=== PATIENT | female | born 1950 | race Caucasian/White ===

== ENCOUNTER → 2018-12-11 | Outpatient (CLI) | payer MEDICARE, OTHER ==
[~2018-12-11] MED LIST: AMLO-150 PO; ASPI-496 PO; HYDR25TA6 PO; METF500T17 PO; NEBI10TA3 PO; OMEP20TA62 PO; ROSU10TA2 PO; SITA100T PO; SULF500T36 PO
[2018-12-11 10:51] LABS: INTERNATIONAL NORMALIZED RATIO 0.95 (0.93-1.1)
[2018-12-11 10:52] LABS: ALANINE AMINOTRANSFERASE 22 U/L (12-78); ALBUMIN 3.9 g/dL (3.4-5.0); ANION GAP 6 mmol/L (5-15); CALCIUM 9.5 mg/dL (8.5-10.1); CHLORIDE 107 mmol/L (98-107); CREATININE 0.95 mg/dL (0.55-1.02)
[2018-12-11 10:54] LABS: MICROSCOPIC AUTO
[2018-12-11 10:55] LABS: ALKALINE PHOSPHATASE 88 U/L (45-117); BILIRUBIN,TOTAL 0.3 mg/dL (0.2-1.0); TOTAL PROTEIN 7.6 g/dL (6.4-8.2)
[2018-12-11 11:01] LABS: CULTURE INDICATED? YES
[2018-12-11 11:08] LABS: BASOPHILS # (AUTO) 0.03 x10^3/uL (0-0.1); BASOPHILS % (AUTO) 0 % (0-1); EOSINOPHILS # (AUTO) 0.08 x10^3/uL (0-0.4); EOSINOPHILS % (AUTO) 1 % (1-7); LYMPHOCYTES # (AUTO) 1.56 x10^3/uL (1-3.4); LYMPHOCYTES % (AUTO) 21 % (22-44); MD NO; MEAN CORPUSCULAR HEMOGLOBIN 28.5 pg (27.0-34.8); MEAN CORPUSCULAR VOLUME 86.5 fL (80-100); MONOCYTES # (AUTO) 0.36 x10^3/uL (0.2-0.8); MONOCYTES % (AUTO) 5 % (2-9); NEUTROPHILS # (AUTO) 5.39 x10^3/uL (1.8-6.8); NEUTROPHILS % (AUTO) 73 % (42-75); PLATELET COUNT 222 x10^3/uL (130-400); RED BLOOD COUNT 5.15 x10^6/uL (3.82-5.3); RED CELL DISTRIBUTION WIDTH 14.3 % (9.6-15.2)
== END | disposition home or self-care (01) ==
LOC: STAR 09:19
PROVIDERS: ATTEND Orthopaedic Surgery
DX: Z01.818 Encounter for other preprocedural examination (principal); M17.11 Unilateral primary osteoarthritis, right knee; I49.3 Ventricular premature depolarization; R94.31 Abnormal electrocardiogram [ECG] [EKG]
CPT/HCPCS: 36415; 80053; 81001; 83036; 85025; 85610; 85730; 87081; 87086; 87806; 93005; G0475

== ENCOUNTER 2018-12-21 06:48 | Observation (INO) | payer MEDICARE, OTHER ==
[~2018-12-21] VITALS: Ht 157.5 cm; Wt 95.5 kg
[~2018-12-21 06:48] MED LIST changes: +EPINEPHRINE 1 MG/ML, 1ML ONE; +KETOROLAC 60 MG/2 ML ONE; +ROPIvacaine/PF 0.2%, 20 ML ONE; +SODIUM CHLORIDE 0.9% 50 ML ONE; +TRANEXAMIC ACID 100 MG/ML, 10ML ONE
[2018-12-21] MEDS ORDERED: MIDAZOLAM 1 MG/ML, 2ML ONE (07:41)
[2018-12-21] MEDS ORDERED: FENTANYL PF 250 MCG/5ML ONE (07:41)
[2018-12-21] MEDS ORDERED: ACETAMINOPHEN 500 MG TABLET PO STA (07:43)
[2018-12-21] MEDS ORDERED: GABAPENTIN 300 MG CAPSULE PO STA (07:43)
[2018-12-21] MEDS: LACTATED RINGERS 1,000 ML IV SCH ×2 (08:07→08:15)
[2018-12-21] MEDS ORDERED: DIPHENHYDRAMINE 50 MG CAPSULE PO PRN (09:00)
[2018-12-21] MEDS ORDERED: SCOPOLAMINE PATCH, 1.5MG PATCH.TD72 TD SCH (09:00)
[2018-12-21] MEDS ORDERED: SENNA/DOCUSATE TABLET PO PRN (09:00)
[2018-12-21] MEDS ORDERED: DEXAMETHASONE 4 MG/ML, 1ML IVPush SCH (09:00)
[2018-12-21] MEDS ORDERED: PSYLLIUM PACKET PO PRN (09:00)
[2018-12-21] MEDS ORDERED: DIPHENHYDRAMINE 50 MG/ML, 1ML IVPush PRN (09:00)
[2018-12-21] MEDS ORDERED: KETOROLAC 30 MG/1 ML IV SCH (09:00)
[2018-12-21] MEDS ORDERED: ONDANSETRON 2MG/ML, 2ML IV PRN ×2 (09:00→09:30)
[2018-12-21] MEDS ORDERED: ACETAMINOPHEN 325 MG TABLET PO PRN (09:00)
[2018-12-21] MEDS ORDERED: ALUMINUM/MAG/SIMETHICONE 30 ML UDC PO PRN (09:00)
[2018-12-21] MEDS ORDERED: MAGNESIUM HYDROXIDE 8%, 30ML UDC PO PRN (09:00)
[2018-12-21] MEDS ORDERED: HYDROmorphone 2 MG/ML, 1ML IVPush PRN ×2 (09:00→09:30)
[2018-12-21] MEDS ORDERED: OXYcodone IR 5MG TABLET PO PRN (09:00)
[2018-12-21] MEDS ORDERED: POLYETHYLENE GLYCOL 17 GM PACKET PO PRN (09:00)
[2018-12-21] MEDS ORDERED: PROMETHAZINE 25 MG/ML, 1ML IM PRN (09:00)
[2018-12-21] MEDS ORDERED: ONDANSETRON 4 MG TABLET PO PRN (09:00)
[2018-12-21] MEDS ORDERED: ACETAMINOPHEN 650 MG/20.3 ML UDC PO PRN (09:00)
[2018-12-21] MEDS ORDERED: BUPIVACAINE/PF 0.25% ONE (09:30)
[2018-12-21] MEDS ORDERED: DIAZEPAM 5 MG/ML, 2ML IVPush PRN (09:30)
[2018-12-21] MEDS ORDERED: FENTANYL PF 100 MCG/2ML IV PRN (09:30)
[2018-12-21] MEDS ORDERED: MIDAZOLAM 1 MG/ML, 2ML IV PRN (09:30)
[2018-12-21] MEDS ORDERED: ALBUTEROL/IPRATROPIUM 2.5MG/0.5MG, 3 ML NPPB PRN (09:30)
[2018-12-21] MEDS ORDERED: METOPROLOL 1 MG/ML, 5ML IV PRN (09:30)
[2018-12-21] MEDS ORDERED: PROMETHAZINE 25 MG/ML, 1ML IV PRN (09:30)
[2018-12-21] MEDS ORDERED: hydrALAzine 20 MG/ML, 1ML IV PRN (09:30)
[2018-12-21] MEDS ORDERED: LIDOCAINE-MPF 2% ,5ML ONE (09:30)
[2018-12-21] MEDS ORDERED: MEPERIDINE/PF 25MG/0.5ML IVPush PRN (09:30)
[2018-12-21] MEDS ORDERED: OXYcodone 5 MG/5 ML ORAL.SOL UDC PO PRN (09:30)
[2018-12-21] MEDS ORDERED: SCOPOLAMINE PATCH, 1.5MG PATCH.TD72 TD PRN (09:30)
[2018-12-21] MEDS ORDERED: DEXAMETHASONE 4 MG/ML, 1ML ONE (09:32)
[2018-12-21] MEDS ORDERED: ONDANSETRON 2MG/ML, 2ML ONE (09:32)
[2018-12-21] MEDS ORDERED: CEFAZOLIN 1,000 MG ONE (09:32)
[2018-12-21] MEDS ORDERED: PROPOFOL 10 MG/ML, 20ML ONE (09:32)
[2018-12-21] MEDS ORDERED: FENTANYL PF 100 MCG/2ML ONE (10:22)
[2018-12-21] MEDS ORDERED: OXYcodone 5 MG/5 ML ORAL.SOL UDC ONE (10:23)
[2018-12-21] MEDS ORDERED: TRANEXAMIC ACID 1,000 MG in SODIUM CHLORIDE 0.9% 100 ML IVPB ONE (10:30)
[2018-12-21 11:55] VITALS: BP 116/57
[2018-12-21] MEDS: TAMSULOSIN 0.4 MG CAP.ER.24H PO SCH (12:28)
[2018-12-21] MEDS: POTASSIUM CHLORIDE 20 MEQ in LACTATED RINGERS 1,000 ML IV SCH ×2 (12:28→22:06)
[2018-12-21] MEDS: DOCUSATE 100 MG CAPSULE PO SCH ×2 (12:28→21:17)
[2018-12-21 15:41] VITALS: BP 122/74
[2018-12-21] MEDS ORDERED: KETOROLAC 60 MG/2 ML ONE (17:37)
[2018-12-21] MEDS: metFORMIN 500 MG TABLET PO SCH (17:56)
[2018-12-21] MEDS: CEFAZOLIN PMX 1GM/50ML 50 ML IVPB SCH (17:56)
[2018-12-21] MEDS: KETOROLAC 30 MG/1 ML IVPush SCH (17:56)
[2018-12-21] MEDS ORDERED: ASPIRIN 81 MG TABLET EC PO SCH (18:00)
[2018-12-21] MEDS: ASPIRIN 81 MG TABLET EC PO SCH ×2 (18:00→21:17)
[2018-12-21 18:56] VITALS: BP 106/67
[2018-12-21] MEDS ORDERED: GABAPENTIN 300 MG CAPSULE PO SCH (21:00)
[2018-12-21] MEDS ORDERED: ATORVASTATIN 40 MG TABLET PO SCH (21:00)
[2018-12-22 00:50] VITALS: BP 106/68
[2018-12-22] MEDS: CEFAZOLIN PMX 1GM/50ML 50 ML IVPB SCH (01:35)
[2018-12-22] MEDS: KETOROLAC 30 MG/1 ML IVPush SCH ×2 (01:35→08:23)
[2018-12-22 04:15] VITALS: BP 106/67
[2018-12-22] MEDS ORDERED: OMEPRAZOLE 20 MG CAPSULE.DR PO SCH (06:00)
[2018-12-22] MEDS ORDERED: NEBIVOLOL HCL 5 MG TABLET PO SCH (06:00)
[2018-12-22] MEDS ORDERED: DEXAMETHASONE 4 MG/ML, 1ML IVPush ONE ×2 (06:00)
[2018-12-22 08:12] VITALS: BP 124/67
[2018-12-22] MEDS: metFORMIN 500 MG TABLET PO SCH (08:22)
[2018-12-22] MEDS: TAMSULOSIN 0.4 MG CAP.ER.24H PO SCH (08:22)
[2018-12-22] MEDS: ASPIRIN 81 MG TABLET EC PO SCH (08:22)
[2018-12-22] MEDS: DOCUSATE 100 MG CAPSULE PO SCH (08:22)
[2018-12-22] MEDS: POTASSIUM CHLORIDE 20 MEQ in LACTATED RINGERS 1,000 ML IV SCH (08:23)
[2018-12-22] MEDS ORDERED: AMLODIPINE 5 MG TABLET PO SCH (09:00)
[2018-12-22] MEDS ORDERED: HYDROCHLOROTHIAZIDE 25 MG TABLET PO SCH (09:00)
[2018-12-22] MEDS ORDERED: SULFASALAZINE 500 MG TABLET PO SCH (09:00)
[2018-12-22] MEDS ORDERED: LINAGLIPTIN 5 MG TAB PO SCH (09:00)
== END 2018-12-22 11:11 | disposition home or self-care (01) ==
LOC: OUT 06:48 → 4NOR 11:21 → OUT 19:34 → DCLOUNGE 12-22 10:56
PROVIDERS: ADMIT Orthopaedic Surgery; ATTEND Orthopaedic Surgery
DX: M17.11 Unilateral primary osteoarthritis, right knee (principal); M21.061 Valgus deformity, not elsewhere classified, right knee; M23.8X1 Other internal derangements of right knee; Z79.899 Other long term (current) drug therapy
CPT/HCPCS: 27447; 36415; 73560; 82962; 85014; 85018; 96365; 96366; 96375; 96376; 97110; 97161; C1713; C1776; G0378; J0171; J0690; J1100; J1885; J2250; J2405; J2704; J2795; J3010; J3480; J3490; J7120